=== PATIENT | female | born 1955 | race Caucasian/White ===

== ENCOUNTER → 2016-12-01 | Outpatient (CLI) | payer BC | END | disposition home or self-care (01) | LOC: LAB.O 09:24 | PROVIDERS: ATTEND Family Medicine | DX: M32.10 Systemic lupus erythematosus, organ or system involvement unspecified (principal); M79.1 Myalgia ==

== ENCOUNTER → 2017-01-18 | Outpatient (CLI) | payer BC ==
--- NOTE | 2017-01-19 11:56 | MAM ---
EXAM DESCRIPTION: 3D Screening BILATERAL CLINICAL HISTORY: 61 yearsFemaleSCREENING no complaints. Prior benign right breast biopsy. Mother breast cancer. Postmenopausal. Currently using HRT. COMPARISON: 2-D digital screening bilateral study 01/12/2016 and 06/28/2013.. Report from prior examination also reviewed. TECHNIQUE: Bilateral CC and MLO projection full-field images, 3-D tomosynthesis digital mammographic technique. Also bilateral synthesized CC/ MLO full-field images. CAD not utilized. FINDINGS: The breast parenchymal density pattern is: Heterogeneously dense breast tissue, which may obscure small masses. No skin thickening or nipple retraction minimal architectural distortion in the upper outer quadrant of the middle third of the right breast. Postbiopsy markers in the posterior third of the right breast just lateral to the posterior nipple line. Bilateral solitary microcalcifications. No focal, stellate mass or density, focal asymmetry , and no suspicious microcalcifications bilaterally Stable mammograms compared to prior study 2013, taking into account differences in mammographic technique IMPRESSION: BI-RADS CATEGORY: 2 - BENIGN FINDINGS. FOLLOW UP: Routine digital bilateral screening, one year interval from December 2016. Written communication explaining the IMPRESSION and follow-up, will be mailed to the patient and referring health care provider. According to the [employer], yearly mammograms are recommended starting at age 40 and continuing as long as a woman is in good health. Any breast change noted on a breast self-exam should be reported promptly to the patient's healthcare provider. Breast MRI is recommended for women with an approximately 20-25% or greater lifetime risk of breast cancer, including women with a strong family history of breast or ovarian cancer and women who have been treated for Hodgkin's disease. A negative mammographic report should not delay tissue diagnosis in patients with significant clinical history or physical findings. Extremely dense breast tissue limits the sensitivity of digital mammography. Electronically signed by: Norbert Montilla MD 01/19/2017 11:54 AM CDT
== END ==
LOC: MAMMO 15:00
PROVIDERS: ATTEND Family Medicine
DX: Z12.31 Encounter for screening mammogram for malignant neoplasm of breast (principal)
CPT/HCPCS: 77063; G0202

== ENCOUNTER → 2018-04-25 | Outpatient (CLI) | payer BC | LOC: GMAL 14:23 | PROVIDERS: ATTEND Family Medicine | DX: E55.9 Vitamin D deficiency, unspecified (principal) ==

== ENCOUNTER → 2019-02-13 | Outpatient (CLI) | payer OTHER ==
--- NOTE | 2019-02-13 19:37 | MAM ---
EXAM DESCRIPTION: 3D Diagnostic, Bilateral (accession [id number]), Breast,Right (accession [id number]): Ultrasound CLINICAL HISTORY: 63 yearsFemaleLUMP LEFT AND RIGHT BREAST . Patient no longer feels bilateral breast lumps. Mother with breast cancer in her 80s. No personal history of breast cancer. Menarche age 12. Childbirth. Hysterectomy. Currently on HRT. Previous benign right breast biopsy. Lifetime risk of developing breast cancer (Tyrer-Cuzick model)(%): 15.1 COMPARISON: Bilateral screening digital breast tomosynthesis 01/18/2017. TECHNIQUE: Bilateral LM, CC, and MLO projection full-field images, digital mammographic tomosynthesis technique. Bilateral 2-D digital full-field images. LM, CC, and MLO projections. CAD not available. . Transcutaneous scanning of the right breast utilizing brunson-scale and Doppler modes. Scanning performed by the filler shredding machine loader and Dr. Montilla. FINDINGS: The breast parenchymal density pattern is: Heterogeneously dense breast tissue, which may obscure small masses. No skin thickening or nipple retraction . Bilateral solitary microcalcifications. Bilateral skin moles. Again noted is architectural distortion in the middle third of the upper outer quadrant of the right breast, with adjacent coarse calcifications but no definite mass. This is superior anterior to the biopsy site marker in the posterior third of the breast. Stable focal asymmetry in the posterior third of the right breast upper outer quadrant. No new focal, stellate mass or density, focal asymmetry , and no suspicious microcalcifications left breast Ultrasound: Scanning of the upper outer quadrant of the middle third of the right breast. Heterogeneous mostly fibroglandular tissues with minimal fatty echoes. Scanning specifically at the 10:00 position 6 cm from the nipple. Architectural distortion is noted as a regular hypoechoic tissue and shadowing which is oriented anterior to posterior. No dominant solid mass or distinct cyst. No parenchymal edema or large calcifications. This is most likely scar tissue associated with prior biopsy. IMPRESSION: BI-RADS CATEGORY: 3 - PROBABLY BENIGN. Management: Short interval (6-month) diagnostic tomosynthesis right breast with directed right breast ultrasound of the region of interest.. The FINDINGS and the FOLLOW-UP plan were reviewed in person with the patient after the examination. Written communication explaining the IMPRESSION and FOLLOW-UP will be mailed to the patient and referring care provider. Electronically signed by: Norbert Montilla MD 02/13/2019 7:35 PM CDT
== END ==
LOC: MAMMO 11:00
PROVIDERS: ATTEND Family Medicine
DX: N63.10 Unspecified lump in the right breast, unspecified quadrant (principal); N63.20 Unspecified lump in the left breast, unspecified quadrant
CPT/HCPCS: 76641; 77066; G0279

== ENCOUNTER → 2019-03-21 | Outpatient (CLI) | payer SELFPAY | LOC: LAB.O 16:56 | PROVIDERS: ATTEND Family Medicine | DX: M32.10 Systemic lupus erythematosus, organ or system involvement unspecified (principal); R53.82 Chronic fatigue, unspecified ==

== ENCOUNTER → 2019-08-28 | Outpatient (CLI) | payer OTHER ==
--- NOTE | 2019-08-28 17:16 | MAM ---
EXAM DESCRIPTION: 3D Diagnostic, Right (accession [id number]), Breast,Right (accession [id number]): Ultrasound CLINICAL HISTORY: 64 yearsFemale6 MO FOLLOW UP ABNORMAL MAMMOGRAM . Architectural distortion and asymmetry from biopsy posterior right breast. No personal history of breast cancer. Mother with breast cancer at age 80. Menarche age 12. Childbirth age 18. Menopause (hysterectomy) age 50. HRT 5 or more years ago Lifetime risk of developing breast cancer (Tyrer-Cuzick model)(%): 18.2. COMPARISON: Bilateral diagnostic tomosynthesis January 2019. Bilateral screening digital tomosynthesis December 2016. Targeted right breast ultrasound January 2019. TECHNIQUE: Right breast LM, CC, and MLO projection full-field images, digital tomosynthesis technique. Right breast 2-D digital full-field images: LM, CC, and MLO projections. CAD available for 2-D images.. Transcutaneous scanning of the right breast utilizing brunson-scale and Doppler modes. Scanning performed by the electric power superintendent ; observation by Dr. Montilla. FINDINGS: The breast parenchymal density pattern is: Heterogeneously dense breast tissue, which may obscure small masses. No skin thickening or nipple retraction architectural distortion associated with the prior biopsy site. 3 skin mole markers. Solitary microcalcifications. No new focal, stellate mass or density, focal asymmetry , and no suspicious microcalcifications right breast. Ultrasound: Scanning of the upper outer quadrant of the posterior third of the right breast. Heterogeneous mixture of fibroglandular and fatty tissues. Hypoechoic tissue but no definite margins or borders. No dominant mass. Nonvascular. No distinct cyst or large calcifications. Overlying skin biopsy site.. IMPRESSION: Most likely Scar tissue and most likely benign. BI-RADS CATEGORY: 3 - PROBABLY BENIGN. Management: Short interval (6-month) diagnostic tomosynthesis right breast and directed right breast ultrasound. Schedule at same time as routine one year follow-up of left breast, after February 14, 2020.. The FINDINGS and the FOLLOW-UP plan were reviewed in person with the patient after the examination. Written communication explaining the IMPRESSION and FOLLOW-UP will be mailed to the patient and referring care provider. Electronically signed by: Norbert Montilla MD 08/28/2019 5:14 PM CDT
== END ==
LOC: MAMMO 13:00
PROVIDERS: ATTEND Family Medicine
DX: R92.8 Other abnormal and inconclusive findings on diagnostic imaging of breast (principal)
CPT/HCPCS: 76641; 77065; G0279

== ENCOUNTER → 2020-03-05 | Outpatient (CLI) | payer OTHER ==
--- NOTE | 2020-03-05 11:14 | US ---
EXAM DESCRIPTION: 3D Diagnostic, Bilateral (accession [id number]), Breast,Right (accession [id number]): Ultrasound CLINICAL HISTORY: 64 yearsFemale6 MONTH FOLLOW UP architectural distortion right breast. Previous benign right breast biopsy. Mother with breast cancer at age 80. Menarche age 12. Childbirth age 18. Menopause (hysterectomy) age 50 HRT 5 or more years ago.. Lifetime risk of developing breast cancer (Tyrer-Cuzick model) percentage is 18.2. COMPARISON: Right breast diagnostic digital tomosynthesis and directed ultrasound July 2019. Bilateral diagnostic digital breast tomosynthesis and right breast ultrasound January 2019. . TECHNIQUE: Bilateral LM, CC, and MLO projection full-field images, digital mammographic tomosynthesis technique. Bilateral 2-D digital full-field MLO images. LM, CC, and MLO projections. CAD not available. Transcutaneous scanning of the right breast utilizing brunson-scale and Doppler modes. Scanning performed by the administrative library assistant and Dr. Montilla. FINDINGS: The breast parenchymal density pattern is: Heterogeneously dense breast tissue, which may obscure small masses. No skin thickening or nipple retraction the region of architectural distortion in the upper-outer quadrant of the middle third of the right breast is enlarging with more of a central mass appearance, and longer spiculations since the prior study. Skin mole markers. Biopsy site marker clip. Solitary microcalcifications. No new focal, stellate mass or density, focal asymmetry , and no suspicious microcalcifications left breast. Ultrasound: Scanning of the region of interest upper outer quadrant middle third right breast. Scanning specifically 6 cm from the nipple at 11:00. Facial fatty tissue and mostly fibroglandular elements. Ill-defined hypoechoic mass with minimal spiculation measuring 7.5 x 7.6 mm. Echogenic surrounding tissue. Taller than wide orientation and posterior acoustic shadowing. No large calcification, no fluid collection, no distinct cyst. IMPRESSION: 1. BI-RADS Category 4: SUSPICIOUS - Subcategory 4B: Moderate Suspicion For Malignancy. 2. Tissue diagnosis is recommended if there are no clinical contraindications. The FINDINGS and follow up were discussed in person with the patient following the examination. Written communication explaining the IMPRESSION and follow-up, will be mailed to the patient and referring health care provider. Written communication explaining the IMPRESSION and follow-up, will be mailed to the patient and referring health care provider. The FINDINGS and the FOLLOW-UP plan were reviewed in person with the patient after the examination. CRITICAL COMMUNICATION: The critical value was communicated directly by Ms. Adriana Wetzel, Breast Instrument Operator at [facility], via phone call, with [facility], Breast Screening section, at approximately 1030 hours, on March 05, 2020. Electronically signed by: Norbert Montilla MD 03/05/2020 11:13 AM [facility] [employer] TE[employer]
== END ==
LOC: MAMMO 09:00
PROVIDERS: ATTEND Family Medicine
DX: R92.8 Other abnormal and inconclusive findings on diagnostic imaging of breast (principal); Z09 Encounter for follow-up examination after completed treatment for conditions other than malignant neoplasm
CPT/HCPCS: 76641; 77066; G0279

== ENCOUNTER → 2020-03-23 | Outpatient (CLI) | payer OTHER ==
--- NOTE | 2020-03-27 15:16 | US ---
EXAM DESCRIPTION: Biopsy/Needle Guidance Ultrasound. CLINICAL HISTORY: 64 years Female ABNORMAL MAMMO abnormal finding right breast. COMPARISON: Directed right breast ultrasound and diagnostic, symphysis right breast March 05. TECHNIQUE: Procedure performed by Dr. Ledezma. 8 multiplanar, ultrasound images taken by the driver/sales workers during usual core biopsy right breast 6 cm from the nipple at 11:00. No complicating process is demonstrated. Please refer to surgical report for specific details. Permanent images of this procedure are stored in the patient's medical record. IMPRESSION: Successful, ultrasound-guided needle core biopsy right breast mass, performed by Dr. Ledezma. Pathology results pending. Electronically signed by: Norbert Montilla MD 03/27/2020 3:14 PM SHOP TEACHER
--- NOTE | 2020-03-30 09:52 | OP ---
DATE OF PROCEDURE: 03/23/20 PREOPERATIVE DIAGNOSIS: 1. Right breast mass. POSTOPERATIVE DIAGNOSIS: 1. Right breast mass. PROCEDURE: 1. Ultrasound guided needle core biopsy, right breast lesion x5. SURGEON: Amauri Ledezma MD INDICATION: The patient had an ultrasound on 03/05/20 with findings consistent with architectural distortion upper outer quadrant, middle third, right breast, which appeared changed since the previous study. Ultrasound identified the lesion, 7 x 6 mm, taller than wide. PROCEDURE: The patient was prepped and ultrasound was performed which identified the lesion, hypoechoic with minimal shadowing. The area was prepped and draped in sterile fashion. Local anesthesia was instilled under direct visualization to the lesion. A elza was made. The core was placed in multiple areas of the lesion and overall 5 cores were taken. Three of them appeared fatty. She tolerated the procedure. There was no bleeding. Dressing was applied. She was discharged to await pathology results. #[id number] MTDD
== END ==
LOC: US 13:16
PROVIDERS: ATTEND Family Medicine
DX: R92.8 Other abnormal and inconclusive findings on diagnostic imaging of breast (principal)

== ENCOUNTER 2020-05-28 05:33 | Day surgery (SDC) | payer OTHER ==
[2020-05-28] MEDS ORDERED: PROPOFOL 200 MG/20 ML VIAL IV ONE (07:00)
[2020-05-28] MEDS ORDERED: diphenhydrAMINE HCL 50 MG/ML VIAL ONE (07:00)
[2020-05-28] MEDS ORDERED: LIDOCAINE 1% 10 ML VIAL INJ ONE (07:00)
[2020-05-28] MEDS ORDERED: DEXAMETHASONE INJ 10 MG/ML VIAL ONE (07:00)
[2020-05-28] MEDS ORDERED: LACTATED RINGERS 1,000 ML IVS ONE (09:55)
[2020-05-28] MEDS ORDERED: BUPIVACAINE 0.25% W/EPI 50 ML VIAL INJ ONE (10:30)
[2020-05-28] MEDS ORDERED: SODIUM BICARBONATE 10MEQ/10ML 10 MEQ/10 ML SYG IV ONE (10:32)
--- NOTE | 2020-05-28 11:12 | OP ---
DATE OF PROCEDURE: 05/28/20 PREOPERATIVE DIAGNOSIS: 1. Right breast mass. POSTOPERATIVE DIAGNOSIS: 1. Right breast mass. PROCEDURE: 1. Needle localized wide local excision, right breast. SURGEON: Amauri Ledezma MD ANESTHESIA: General, Jun Oscar CRNA FINDINGS: Based on the films, the lesion was positioned slightly inferior and lateral to the wire. Preoperative films were reviewed after wire placement. COMPLICATIONS: None. ESTIMATED BLOOD LOSS: Minimal. PLAN: Discharge. INDICATION: This is a 65-year-old woman with a right breast mass. Needle core biopsies were performed that showed benign findings, however, the pathology was not concordant with the image findings, so excision was recommended. PROCEDURE: The patient was brought to the Operating Suite in supine position. General anesthesia was induced. She was prepped and draped in sterile fashion. The breast was oriented. Local anesthesia was placed. Incision was made over the wire. We tracked the wire down until we got to the thickened portion now knowing that the mass would be situated somewhat inferior and lateral to the wire. We favored this area in our biopsy, went down past the wire. The specimen was removed. Sutures were placed, long stitch laterally, short stitch superiorly for orientation. It was then sent to X-ray and confirmed the lesion was in the middle of the specimen. Minimal hemostasis was necessary. The wound was then closed in two layers with absorbable suture. Steri-Strip was applied. She tolerated the procedure and taken to Recovery to be discharged. We will followup next week with final pathology results. #[id number] cc: Bull Nielson MD [facility]
--- NOTE | 2020-05-28 11:18 | MAM ---
EXAM DESCRIPTION: Breast-Needle Localization Rt: Digital mammography. CLINICAL HISTORY: 65 years FemaleBREAST BIOPSY WITH NEEDLE LOCALIZATION COMPARISON: Diagnostic bilateral digital breast tomosynthesis March 2020. TECHNIQUE: The procedure was performed for Dr. Montilla. Timeout was performed to confirm patient identification, procedure to be performed, and site of procedure. Procedure explained to the patient with risks and benefits. The patient gave verbal and written consent. The area for localization was identified in the upper outer quadrant middle third right breast. The patient was placed in the digital mammographic unit in the lateral medial position, utilizing the special compression paddle with localizing window. Lateral medial image shows region of interest at coordinates e-3. Sterile preparation. Intradermal injection of sodium bicarbonate and standard strength Xylocaine. The 7 mm [place] Mammalok system was introduced through the paddle window into the upper outer quadrant middle third right breast. Repeat lateral medial image, with needle in place. The breast was moved into the craniocaudal position; repeat images after adjustment showing proper needle depth. Continuing sterile technique, the wire was introduced through the needle, and the needle was withdrawn, leaving hook wire in place. Repeat lateral medial image with wire only. Repeat craniocaudal image with wire only. The hard copy images were labeled for surgical guidance. The patient tolerated the procedure well with no immediate complications. FINDINGS: Multiple images showing positioning of the needle. The thickened segment of the hookwire is abutting the superior posterior mass. The hook extends beyond the mass 2.3 cm. Small microcalcifications are seen within the mass. IMPRESSION: Successful mammographic guided needle wire localization of right breast mass in the upper outer quadrant middle third. Performed by Dr. Montilla. The procedure results were discussed and images were reviewed with Dr. Ledezma, prior to excisional biopsy. Digital mammography of the biopsy specimen to follow excisional biopsy. Electronically signed by: Norbert Montilla MD 05/28/2020 11:16 AM [facility]
--- NOTE | 2020-05-28 11:24 | MAM ---
EXAM DESCRIPTION: Breast Surgical Specimen: Digital Mammography. CLINICAL HISTORY: 65 yearsFemalePOST NEEDLE LOC COMPARISON: Mammographic guided, needle wire localization of right breast mass today. TECHNIQUE: Digital mammography of right breast biopsy specimen. Specimen is within the surgical specimen container FINDINGS: The right breast biopsy specimen contains the mass and spiculations seen on today's procedure images and also seen on images from previous examinations. Microcalcifications are also present. The distal wire and hook are located within the specimen. IMPRESSION: Successful, digital mammographic guided, needle wire localization of spiculated mass with microcalcifications in the right breast, confirmed by digital 2D mammographic imaging of the excisional biopsy specimen. Right breast calcifications and spiculations on prior imaging are present in the biopsy specimen. Pathologic examination and a remote facility is pending. Dr. Ledezma was notified of these findings by text message at 1051 hours on May 28, 2020. Dr. Ledezma acknowledged the text message at 1052 hours on the same date. Electronically signed by: Norbert Montilla MD 05/28/2020 11:22 AM [facility]
[2020-05-28] MEDS ORDERED: IBUPROFEN 400 MG TAB PO ONE (11:45)
[2020-05-28 12:39] VITALS: BP 116/72; TEMP 97.6; O2SAT 99
== END 2020-05-28 12:15 | disposition home or self-care (01) ==
LOC: MAMMO 05:33
PROVIDERS: ATTEND Surgery
DX: N60.81 Other benign mammary dysplasias of right breast (principal); N64.89 Other specified disorders of breast; R92.0 Mammographic microcalcification found on diagnostic imaging of breast; I34.1 Nonrheumatic mitral (valve) prolapse; Z88.5 Allergy status to narcotic agent; Z88.2 Allergy status to sulfonamides; Z88.8 Allergy status to other drugs, medicaments and biological substances; Z90.710 Acquired absence of both cervix and uterus; Z79.899 Other long term (current) drug therapy
CPT/HCPCS: 00400; 19120; 76098; J1100; J1200; J3490; J7120